=== PATIENT | male | born 1945 | race Caucasian/White ===

== ENCOUNTER 2018-01-21 12:57 | Outpatient (CLI) | END 2018-01-21 12:58 | disposition home or self-care (01) | LOC: RHC-LAB 12:57 | PROVIDERS: ATTEND Nurse Practitioner Family | DX: R73.9 Hyperglycemia, unspecified (principal); I50.9 Heart failure, unspecified; I48.91 Unspecified atrial fibrillation; I10 Essential (primary) hypertension; Z12.5 Encounter for screening for malignant neoplasm of prostate | CPT/HCPCS: 36415; 80053; 80061; 83036; 83880; 84443; 85025 ==